=== PATIENT | male | born 2005 | race Caucasian/White ===

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

== ENCOUNTER 2023-08-22 12:30 | Outpatient (CLI) | payer MEDICARE, BC, SELFPAY ==
--- NOTE | ~2023-08-22 | XR_ITS ---
Clinical Indication: Chest pain PA and lateral views of the chest: Comparison: None Findings: The lungs are clear, without evidence of focal consolidation or pleural effusion. Cardiome diastinal silhouette is within normal limits. Extensive thoracolumbar spinal fixation hardware presen t. Impression: Clear lungs. Extensive spinal fixation hardware. Reviewed, dictated and finalized at location . Impression: Clear lungs. Extensive spinal fixation hardware.
== END 2023-08-22 12:31 | disposition home or self-care (01) ==
LOC: ANHIMG 12:37
PROVIDERS: PCP Family Medicine; Visit Provider Physician Assistant
DX: R07.1 Chest pain on breathing (principal)
CPT/HCPCS: 71046

== ENCOUNTER 2023-10-10 16:01 | Outpatient (CLI) | payer MEDICARE, BC, MEDICAID, SELFPAY ==
[2023-10-13 05:04] LABS: Tissue Transglutaminase IgA Ab <1.0 U/mL; Tissue Transglutaminase IgG Ab <1.0 U/mL
[2023-10-31 13:35] LABS: Gliadin Gluten IgA <1.0
== END 2023-10-10 16:02 | disposition home or self-care (01) ==
LOC: ANHLAB 16:10
PROVIDERS: PCP Family Medicine; Visit Provider Family Medicine
DX: R10.9 Unspecified abdominal pain (principal)
CPT/HCPCS: 36415; 86364

== ENCOUNTER 2023-12-15 17:57 | Emergency (ER) | payer MEDICARE, BC, MEDICAID, SELFPAY ==
[2023-12-15 18:07] VITALS: BP 119/72; PULSE 91; RESP 16; TEMP 37.2; O2SAT 99
--- NOTE | 2023-12-15 18:18 | ED.WOUNDLAC ---
HPI - Wound/Laceration General Chief Complaint: Wound/Laceration Stated Complaint: left thumb cut Time Seen by Provider: 12/15/23 18:10 Source: patient and RN notes reviewed Mode of arrival: ambulatory Limitations: no limitations History of Present Illness HPI narrative: Patient presents today with a laceration to the tip of his left thumb that was sustained approximately 2 hours prior to arrival at home while he was cutting potatoes with a knife. He is currently pain-free. He is up-to-date on his tetanus vaccine. Related Data Home Medications Medication Instructions Recorded Confirmed baclofen 10 mg tablet See Rx Instructions .Route .COMPLEX 07/30/23 12/15/23 carvedilol 12.5 mg tablet 12.5 mg PO BID 07/30/23 12/15/23 clindamycin phosphate 1 % topical 1 applic topical DAILY 07/30/23 12/15/23 swab doxycycline hyclate 50 mg capsule See Rx Instructions .Route .COMPLEX 07/30/23 12/15/23 duloxetine 30 mg capsule,delayed 30 mg PO DAILY 07/30/23 12/15/23 release duloxetine 60 mg capsule,delayed 60 mg PO DAILY 07/30/23 12/15/23 release hydrocodone 5 mg-acetaminophen 325 See Rx Instructions .Route .COMPLEX 07/30/23 12/15/23 mg tablet hydrocortisone 2.5 % topical cream See Rx Instructions .Route .COMPLEX 07/30/23 12/15/23 ketoconazole 2 % shampoo See Rx Instructions .Route .COMPLEX 07/30/23 12/15/23 lidocaine 5 % topical patch See Rx Instructions .Route .COMPLEX 07/30/23 12/15/23 methocarbamol 500 mg tablet See Rx Instructions .Route .COMPLEX 07/30/23 12/15/23 mupirocin 2 % topical ointment See Rx Instructions .Route .COMPLEX 07/30/23 12/15/23 omeprazole 20 mg capsule,delayed 20 mg PO DAILY 07/30/23 12/15/23 release oxycodone 5 mg tablet See Rx Instructions .Route .COMPLEX 07/30/23 12/15/23 scopolamine base 1 mg over 3 days See Rx Instructions .Route .COMPLEX 07/30/23 12/15/23 transdermal patch selumetinib 10 mg-vitamin E TPGS 10 cap PO DAILY 07/30/23 12/15/23 capsule ([place]) selumetinib 25 mg-vitamin E TPGS 25 cap PO DAILY 07/30/23 12/15/23 capsule ([place]) sulfamethoxazole 400 1 tablet PO DAILY 07/30/23 12/15/23 mg-trimethoprim 80 mg tablet sumatriptan succinate 25 mg tablet See Rx Instructions .Route .COMPLEX 07/30/23 12/15/23 Allergies Allergy/AdvReac Type Severity Reaction Status Date / Time cefdinir Allergy Intermediate BLOOD IN Verified 12/15/23 18:00 STOOL vancomycin Allergy Intermediate RED MAN Verified 12/15/23 18:00 FACE Review of Systems Review of Systems: CONSTITUTIONAL: Denies body aches, fever, chills, or sweats. EYES: Denies visual changes, redness, or discharge. ENT: Denies rhinorrhea, congestion, sore throat, or otalgia. CARDIOVASCULAR: Denies chest pain, palpitations, or edema. RESPIRATORY: Denies cough or dyspnea. GASTROINTESTINAL: Denies abdominal pain, nausea, vomiting, or diarrhea. GENITOURINARY: Denies dysuria or hematuria. SKIN: Denies rash, itching. + finger laceration MUSCULOSKELETAL: Denies back pain, joint pain, or myalgia. NEUROLOGIC: Denies headache, numbness, tingling, or weakness. PSYCH: Denies depression or anxiety. [facility] Past Medical History Medical History (Updated 12/15/23 @ 18:31 by Consuelo Guzman, [facility], ) Allergic rhinitis Chiari malformation GERD (gastroesophageal reflux disease) History of cancer neuroblastoma Hx of keloid of skin Migraines Neurofibromatosis type 1-like syndrome Surgical History Surgical History (Updated 07/30/23 @ 10:13 by Radha Connelly, [place]) History of knee surgery 06/19/2023 excision neurofibromas History of myringotomy 10/06, 01/06, 02/10 History of rectal surgery rectal suction 07/2004 History of spinal fusion for scoliosis 07/06/2017 History of surgery on lower extremity R proximal tibial epiphysiodesis 12/22/2014 History of testicular surgery orchiopexy 01/2004 History of total adrenalectomy 06/2004 Family History Family History (Updated 07/30/23 @ 10:16 by Radha Connelly, PAC) Fa
[2023-12-15] MEDS: LIDOCAINE HCL 1% LOCAL INJ 2 ML AMPUL 6 ML INFILTRATE (18:21)
[2023-12-15 18:34] VITALS: BP 119/72; PULSE 91; RESP 16; TEMP 37.2; O2SAT 99
== END 2023-12-15 18:57 | disposition home or self-care (01) ==
PROVIDERS: Emergency Provider Nurse Practitioner; PCP Family Medicine
DX: S61.012A Laceration without foreign body of left thumb without damage to nail, initial encounter (principal); W26.0XXA Contact with knife, initial encounter; Y93.G1 Activity, food preparation and clean up; K21.9 Gastro-esophageal reflux disease without esophagitis; Z85.831 Personal history of malignant neoplasm of soft tissue
CPT/HCPCS: 12001; 99212; G0463

== ENCOUNTER → 2025-06-02 19:07 | Outpatient (CLI) | payer MEDICARE, MEDICAID, SELFPAY ==
--- NOTE | ~2025-06-02 | XR_ITS ---
EXAMINATION: XR toe 1st RT min 2V DATE: 06/02/2025 19:28 INDICATION: Right great toe pain TECHNIQUE: Dorsal plantar, lateral and oblique views of the right great toe were obtained. COMPARISON: Right foot radiographs dated 06/07/2016 FINDINGS: Previously seen Salter-Clemente III fracture of the right first distal phalanx has healed in essentially anatomic alignment which is been fixed with a small compression screw. Bones are now skeletally mature. 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 No fractures. Joint spaces are normal. No cortical erosions or periosteal reaction. Soft tissues are unremarkable. IMPRESSION: 1. Old internally fixed fracture of the right first distal phalanx which is healed in essentially anatomic alignment. No acute osseous abnormality. Reviewed, dictated and finalized at location A. [employer] IMPRESSION: 1. Old internally fixed fracture of the right first distal phalanx which is hea led in essentially anatomic alignment. No acute osseous abnormality.
== END ==
PROVIDERS: PCP Family Medicine; Visit Provider Family Medicine
DX: S62.524 Nondisplaced fracture of distal phalanx of right thumb (principal); Z87.828 Personal history of other (healed) physical injury and trauma
CPT/HCPCS: 73660